=== PATIENT | male | born 1995 | race Caucasian/White ===

== ENCOUNTER 2017-01-01 10:30 | Emergency (ER) | payer SELFPAY ==
--- NOTE | 2017-01-02 23:47 | ER ---
ADMIT: 01/01/2017 RM/LOC: ER [facility] MR#: [id number] [address] [place] [address] Emergency Room Report SEX: M AGE: 21 : 1995 DATE: 01/01/2017 CHIEF COMPLAINT: Sore throat and vomiting. HISTORY OF PRESENT ILLNESS: This is a pleasant 21-year-old white male, who presents with a days duration of sore throat and vomiting. The patient denies any known sick contacts. States he is in a great deal of pain, he is unable to swallow. Denies any fevers or chills. No episodes of diarrhea. He does have some diffuse mild abdominal pain as well as a cough. PAST MEDICAL HISTORY: Bipolar, currently on Risperdal. COURSE IN THE EMERGENCY ROOM: The patient was examined; afebrile, nontoxic, in no acute distress. Pharynx mildly erythematous. No lymphadenopathy. Breath sounds normal. No wheezes or rhonchi. Heart is regular rate and rhythm. Does have diffuse abdominal tenderness without any McBurney's point tenderness, rebound, or guarding. Skin is warm and dry. I did get a rapid strep on him, negative for group A strep. Throat culture is pending. IMPRESSION: Acute pharyngitis, likely viral. DISPOSITION: The patient is to use Tylenol or ibuprofen as needed for pain. Increase fluids as tolerated. Continue all his home medications. He is going to return with any worsening signs or symptoms. Follow up with Dr. Barillas as needed. He was provided with a note for work and discharged in stable condition. EMILIE Stewart / Mahesh Dillard MD / mohsen JOB #: [id number] CC: Mahesh Dillard MD, Attending Physician
== END 2017-01-01 11:25 | disposition home or self-care (01) ==
LOC: ER 10:30
DX: J02.9 Acute pharyngitis, unspecified (principal); F31.9 Bipolar disorder, unspecified; Z79.899 Other long term (current) drug therapy; Z87.891 Personal history of nicotine dependence